=== PATIENT | female | born 1955 | race Caucasian/White ===

== ENCOUNTER → 2016-07-05 11:26 | Day surgery (SDC) | payer BC, OTHER ==
--- NOTE | 2016-06-30 03:38 | HP ---
PREOPERATIVE HISTORY AND PHYSICAL: DATE OF OFFICE VISIT/ENCOUNTER: 06/29/16 DATE OF SURGERY/ADMISSION: 07/05/16 [facility] ATTENDING SURGEON: Angeles Duran MD PROCEDURE: Right middle finger trigger finger release, right wrist ganglion cyst excision. CHIEF COMPLAINT: Right middle finger triggering; cyst, right wrist. HISTORY OF PRESENT ILLNESS: This is a 60-year-old female who has had triggering in her right middle finger for several years now. She had a cortisone injection in 2014 that was minimally helpful. She is also complaining of a cyst in the area of the radial styloid on the right wrist. It is not particularly bothersome and has not gotten any bigger, but she would like to have it removed. She is also interested in pursuing surgical intervention for the trigger finger of the right middle finger at this time. PAST MEDICAL HISTORY: 1. Hypertension. 2. Hypothyroidism. 3. Anxiety. PAST SURGICAL HISTORY: 1. Tonsillectomy. 2. D and C. 3. Breast surgery. 4. Partial hysterectomy. 5. Right ring finger cyst excision. CURRENT MEDICATIONS: 1. Enalapril maleate/hydrochlorothiazide 1 tab daily. 2. Levothyroxine sodium 100 mcg daily. 3. Lexapro 20 mg daily. 4. Melatonin 1 mg daily p.r.n. 5. Nexium 20 mg daily. 6. Trazodone HCl 50 mg one half to one tab daily. 7. Xanax 1 mg one half to one tab b.i.d. p.r.n. ALLERGIES: 1. NICKEL. 2. TETRACYCLINE. 3. FLUORIDE. 4. AMOXICILLIN. 5. CECLOR. 6. ERYTHROMYCIN. 7. ZOLOFT. FAMILY MEDICAL HISTORY: Esophageal cancer and cardiac disease. 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 She denies tobacco use and recreational drug use. She does admit to alcohol use on regular occasion. REVIEW OF SYSTEMS: General: Negative for fevers, chills, or night sweats. No known anesthesia problems. HEENT: Negative for headache, lightheadedness, or syncopal episodes. Cardiothoracic: Positive for hypertension. Negative for chest pain, palpitations, or edema. Pulmonary: Negative for shortness of breath with exertion, chronic cough, or COPD. GI: Negative for nausea, vomiting, diarrhea, constipation, or GERD. : Negative for nocturia, urinary frequency, urgency, history of UTIs, or kidney problems. Musculoskeletal: Positive for current complaint. Otherwise negative. Neurological: Positive for anxiety. Negative for paresthesias, numbness, history of seizure, stroke, or epilepsy. Endocrine: Positive for hypothyroidism. Negative for diabetes. Hematologic: Negative for easy bruising, anemia, excessive bleeding, or history of DVT. Infectious Disease: Negative for history of MRSA, hepatitis C, or HIV. PHYSICAL EXAMINATION GENERAL: Well-developed, well-nourished 60-year-old female, in no acute distress. VITAL SIGNS: Height 5 feet 5-1/4 inches, weight 155 pounds, pulse rate 65, blood pressure 139/89. HEENT: Normocephalic, atraumatic. Pupils are equal, round, and reactive to light and accommodation. Extraocular movements are intact. NECK: Supple. No palpable lymph nodes. Throat is clear. PULMONARY: Lungs are clear to auscultation bilaterally. No wheezes, rales, or rhonchi. CARDIOTHORACIC: Regular rate and rhythm. S1, S2. No murmurs, rubs, or gallops. No edema. ABDOMEN: Positive bowel sounds, soft, nontender. MUSCULOSKELETAL: On exam of the right hand, she has tenderness to palpation of the A1 oh of the middle finger. There is clicking and locking as she moves her finger through range of motion. There is no swelling. Neurovascular function is intact. She also has a small ganglion cyst in the first compartment tendon sheath at the right wrist. NEUROLOGICAL: Alert and oriented x3. Cranial nerves II through XII are intact. Sensation is intact to light touch. IMPRESSION: Right middle finger trigger finger and right wrist ganglion. PLAN: The patient is scheduled to undergo a right middle finger trigger finger release and a right wrist ganglion cyst excision with Dr. Duran on 07/05/16. She will return to the office 10 to 14 days postop for followup and suture removal. A prescription for Ultracet was e-scribed to the patient's pharmacy for postoperative pain management. DENNY STEPHENS [id number]/[facility] #: [id number] FAIZAN
[~2016-07-05 11:26] MED LIST: Acetaminophen TAB* 325 MG PO PRN; Buffered Lidocaine 1% SYRIN* 3 ML/SYR SYRINGE INTRADERM ONE; Dexamethasone IV* 4 MG/ML 1 ML (4 MG) ONE; DiMENhydriNATE IV* 50 MG/ML VIAL IV PUSH PRN; Famotidine IV* 10 MG/ML 2 ML (20 mg) ONE; HYDROmorphone* 1 MG/ML 1 ML SYR IV PRN; Ketorolac INJ* 30 MG/ML 1 ML VIAL ONE; Lidocaine 1% INJ* 10 MG/ML 30 ML SDV ONE; Lidocaine 2% PF* 5 ML VIAL ONE; Midazolam* 1 MG/ML 2 ML VIAL (2 MG) ONE; Ondansetron INJ* 2 MG/ML VIAL IV PRN; PROCHLORPERAZINE INJ 5 MG/ML 2 ML VIAL IV PRN; Propofol* 10 MG/ML 20 ML BTL IV PUSH ONE; fentaNYL* 50 MCG/ML 2 ML VIAL (100 MCG VIAL) ONE; oxyCODONE TAB* 5 MG TAB PO PRN
[2016-07-05 13:59] VITALS: BP 124/76
--- NOTE | 2016-07-05 23:41 | OP ---
DATE OF OPERATION: 07/05/[address] [facility] DATE OF : 55 SURGEON: Angeles Duran MD COMFORT FILLER: DENNY Fall ANESTHESIOLOGIST: Dr. Hernandez ANESTHESIA: Local MAC. PRE-OP DIAGNOSES: Right long finger trigger finger and right wrist mass. POST-OP DIAGNOSES: Right long finger trigger finger and right wrist mass. OPERATIVE PROCEDURE: Removal of right wrist mass and release right long finger trigger. INDICATIONS: Pau is a 60-year-old female with a painful mass on the radial aspect of her right wrist and triggering of her right long finger. She presents for trigger finger release and mass excision. ESTIMATED BLOOD LOSS: Zero. TOURNIQUET TIME: About 15 minutes. DESCRIPTION OF PROCEDURE: The patient was brought to the operating room and was given a sedation anesthetic and a local infiltration of 10 cc 1% plain lidocaine split between the two incision sites. The hand and forearm were exsanguinated and the tourniquet elevated to 250 mmHg. A transverse incision was made and centered over the A1 oh of the right middle finger, dissected bluntly through the subcutaneous tissue. The digital neurovascular bundles were retracted. The A1 oh was incised longitudinally, completely releasing the tendons, which were in good condition. The wound was irrigated and the skin edges reapproximated with 4-0 nylon suture. Next, a longitudinal incision was made over the wrist mass, we dissected bluntly through the subcutaneous tissue. The mass was actually a bony mass on the dorsal aspect of the groove for the first dorsal compartment, it was removed with the small portion of the wrist capsule and then a rongeur was used to completely remove the bony mass, which was sent for pathology. The first dorsal compartment was completely released. The wound was irrigated and skin edges reapproximated with 4-0 nylon suture. The wound was dressed with Xeroform, 4x4, Webril, and Julio César wrap. The patient tolerated the procedure well and was brought to the recovery room in good condition. [id number]/[facility] #: [id number] MTDD
== END | disposition home or self-care (01) ==
LOC: OREAST 11:26
PROVIDERS: ATTEND Orthopaedic Surgery
DX: M65.331 Trigger finger, right middle finger (principal); M67.431 Ganglion, right wrist; I10 Essential (primary) hypertension; E03.9 Hypothyroidism, unspecified; F41.9 Anxiety disorder, unspecified; Z88.1 Allergy status to other antibiotic agents
CPT/HCPCS: 88304; 88311; J1100; J1885; J2001; J2250; J2704; J3010

== ENCOUNTER 2017-03-04 08:55 | Emergency (ER) | payer BC ==
--- NOTE | 2017-03-04 09:07 | UC ---
Ear Complaint HPI - HPI Summary HPI Summary: 61 year old female presents with right ear pain. - History of Current Complaint Stated Complaint: RIGHT SIDE EAR ACHE Time Seen by Provider: 03/04/17 09:07 Hx Obtained From: Patient Onset/Duration: Sudden Onset Severity Initially: Moderate Severity Currently: Moderate - Allergies/Home Medications Allergies/Adverse Reactions: Allergies Allergy/AdvReac Type Severity Reaction Status Date / Time Amoxicillin Allergy Hives Verified 03/04/17 09:10 Cefaclor [From Ceclor] Allergy Itching Verified 03/04/17 09:10 Erythromycin Allergy Hives Verified 03/04/17 09:10 Sertraline [From Zoloft] Allergy Hives Verified 03/04/17 09:10 Tetracycline Allergy Hives Verified 03/04/17 09:10 neville Allergy eyes edema Uncoded 03/04/17 09:10 Home Medications: Home Medications ALPRAZolam TAB* [Xanax TAB*] 1 mg PO BID PRN 03/04/17 [History Confirmed ] Acetaminophen TAB* [Tylenol TAB*] 650 mg PO Q4H PRN 03/04/17 [History Confirmed 03/04/17] Escitalopram (NF) [Lexapro 20 mg (NF)] 20 mg PO DAILY 03/04/17 [History Confirmed 03/04/17] Ibuprofen TAB* [Advil TAB*] 400 mg PO Q6H PRN 03/04/17 [History Confirmed ] Levothyroxine TAB* [Synthroid TAB*] 100 mcg PO DAILY 03/04/17 [History Confirmed 03/04/17] PMH/Surg Hx/FS Hx/Imm Hx Previously Healthy: Yes - Surgical History Surgical History: Yes Surgery Procedure, Year, and Place: [place] [facility] [place] [facility] [place], tubal ligation, 15 yrs ago, [facility] [place] [facility] [place] - Family History Known Family History: Positive: None - Social History Alcohol Use: Daily Alcohol Amount: 2 per day Substance Use Type: None Smoking Status (MU): Never Smoked Tobacco Review of Systems Constitutional: Negative Skin: Negative Eyes: Negative ENT: Ear Ache - right ear pain Respiratory: Negative Cardiovascular: Negative Gastrointestinal: Negative Genitourinary: Negative Motor: Negative Neurovascular: Negative Musculoskeletal: Negative Neurological: Negative Psychological: Negative All Other Systems Reviewed And Are Negative: Yes Physical Exam Triage Information Reviewed: Yes Vital Signs Reviewed: Yes Eye Exam: Normal ENT: Positive: Other - right ear external canal erythema Dental Exam: Normal Neck exam: Normal Neck: Positive: 1 Respiratory Exam: Normal Cardiovascular Exam: Normal Abdominal Exam: Normal Musculoskeletal Exam: Normal Neurological Exam: Normal Psychological Exam: Normal Skin Exam: Normal Ear Complaint Course/Dx - Differential Dx/Diagnosis Provider Diagnoses: right ear otitis externa Discharge - Discharge Plan Condition: Stable Disposition: HOME Prescriptions: Fluticasone NASAL SPRAY 50MCG* [Flonase NASAL SPRAY 50MCG*] 2 spray BOTH NARES DAILY #1 btl Neomyc/Polym/HC 1% OTIC SUSP* [Cortisporin Otic Susp 1%*] 4 drop RIGHT EAR QID # 1 btl Patient Education Materials: Earache (ED) Referrals: Nichelle Mckenzie MD [Primary Care Provider] -
[2017-03-04 09:15] VITALS: BP 147/81
== END 2017-03-04 09:32 | disposition home or self-care (01) ==
LOC: UCCORT 08:55
DX: H60.91 Unspecified otitis externa, right ear (principal)
CPT/HCPCS: 99212; G0463

== ENCOUNTER 2017-04-09 13:08 | Emergency (ER) | payer BC, OTHER ==
[2017-04-09 15:25] VITALS: BP 147/82
--- NOTE | 2017-04-09 15:39 | UC ---
Throat Pain/Nasal Bhavesh HPI - HPI Summary HPI Summary: 4 days of sinus pain and pressure cough unable to sleep at night body aches and chills - History of Current Complaint Chief Complaint: UCGeneralIllness Stated Complaint: SORE THROAT,CONGESTION,EAR(S) Time Seen by Provider: 04/09/17 15:37 Hx Obtained From: Patient ?: No Onset/Duration: Sudden Onset, Lasting Days - 4, Still Present Severity: Moderate Cough: None Associated Signs & Symptoms: Positive: Sinus Discomfort, Fever - Allergies/Home Medications Allergies/Adverse Reactions: Allergies Allergy/AdvReac Type Severity Reaction Status Date / Time Amoxicillin Allergy Hives Verified 04/09/17 15:25 Cefaclor [From Ceclor] Allergy Itching Verified 04/09/17 15:25 Erythromycin Allergy Hives Verified 04/09/17 15:25 Sertraline [From Zoloft] Allergy Hives Verified 04/09/17 15:25 Tetracycline Allergy Hives Verified 04/09/17 15:25 neville Allergy eyes edema Uncoded 04/09/17 15:25 PMH/Surg Hx/FS Hx/Imm Hx Previously Healthy: Yes Endocrine History: Hypothyroidism Cardiovascular History: Hypertension Psychological History: Depression - Surgical History Surgical History: Yes Surgery Procedure, Year, and Place: [place] [facility] [place] [facility] [place], tubal ligation, 15 yrs ago, [facility] [place] [facility] [place] - Family History Known Family History: Positive: None - Social History Occupation: Employed Full-time Lives: With Family Alcohol Use: Daily Alcohol Amount: 2 per day Substance Use Type: None Smoking Status (MU): Never Smoked Tobacco - Immunization History Most Recent Influenza Vaccination: 01/2017 Review of Systems Constitutional: Chills, Fatigue Skin: Negative Eyes: Negative ENT: Sore Throat, Nasal Discharge, Sinus Congestion Respiratory: Cough Cardiovascular: Negative Gastrointestinal: Negative Genitourinary: Negative Motor: Negative Neurovascular: Negative Musculoskeletal: Arthralgia, Myalgia Neurological: Headache Psychological: Negative Is Patient Immunocompromised?: Yes All Other Systems Reviewed And Are Negative: Yes Physical Exam Triage Information Reviewed: Yes Appearance: No Pain Distress, Well-Nourished, Ill-Appearing Vital Signs: Initial Vital Signs Temp 97.4 F 04/09/17 15:20 Pulse 63 04/09/17 15:20 Resp 14 04/09/17 15:20 BP 147/82 04/09/17 15:20 Pulse Ox 100 04/09/17 15:20 Vital Signs Reviewed: Yes Eye Exam: Normal Eyes: Positive: Conjunctiva Clear ENT Exam: Normal ENT: Positive: Normal ENT inspection, Hearing grossly normal, Pharynx normal, Nasal congestion, TMs normal, Sinus tenderness, Uvula midline. Negative: Tonsillar swelling, Tonsillar exudate, Trismus, Muffled voice, Hoarse voice Dental Exam: Normal Neck exam: Normal Neck: Positive: Supple, Nontender, No Lymphadenopathy Respiratory Exam: Normal Respiratory: Positive: Chest non-tender, Lungs clear, Normal breath sounds, No respiratory distress, No accessory muscle use Cardiovascular Exam: Normal Cardiovascular: Positive: RRR, No Murmur, Pulses Normal, Brisk Capillary Refill Musculoskeletal Exam: Normal Musculoskeletal: Positive: Strength Intact, ROM Intact, No Edema Neurological Exam: Normal Neurological: Positive: Alert, Muscle Tone Normal Psychological Exam: Normal Skin Exam: Normal Diagnostics - Laboratory Diagnostic Studies Completed/Ordered: Influenza A/B (-) Throat Pain/Nasal Course/Dx - Course Assessment/Plan: zithromax, robitussin and codiene, increase fluids follow with pcp prn - Differential Dx/Diagnosis Provider Diagnoses: Bronchitis Discharge - Discharge Plan Condition: Stable Disposition: HOME Prescriptions: Azithromycin TAB* [Zithromax TAB (Z-SINCERE) 250 mg #6 tabs] 2 tab PO .TODAY, THEN 1 DAILY #1 sincere Guaifenesin-Codeine [Guaiatussin AC] 5 - 10 syp PO Q6HR PRN #60 ml MDD 40 PRN Reason: Cough Patient Education Materials: Acute Bronchitis (ED), Hypertension (ED) Referrals: Nichelle Mckenzie MD [Primary Care Provider] - 2 Weeks
== END 2017-04-09 16:19 | disposition home or self-care (01) ==
LOC: UCCORT 13:08
DX: J40 Bronchitis, not specified as acute or chronic (principal); Z88.1 Allergy status to other antibiotic agents; Z88.8 Allergy status to other drugs, medicaments and biological substances; I10 Essential (primary) hypertension
CPT/HCPCS: 87502; 87651; 99212; G0463

== ENCOUNTER 2017-06-10 08:45 | Emergency (ER) | payer BC ==
[2017-06-10 09:01] VITALS: BP 147/81
--- NOTE | 2017-06-10 09:14 | UC ---
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 She states having a URI since last weekend. Denies fever. States able to blow her nose but still feels very congested." -she has had many sinus infections and sx are consistent with previous. She has several med allergies and states that zpack always works well for her and she has never had complications with it (even while on lexapro). She prefers this medication. + Mild cough, no wheezing. no fever/chills/n/v. Started as chest cold. took iburpofen for pain w/ minimal relief - History of Current Complaint Chief Complaint: UCRespiratory Stated Complaint: SINUS PRESSURE Time Seen by Provider: 06/10/17 08:53 Pain Intensity: 6 - Allergies/Home Medications Allergies/Adverse Reactions: Allergies Allergy/AdvReac Type Severity Reaction Status Date / Time MS Amoxicillin [Amoxicillin] Allergy Hives Verified 06/10/17 09:02 MS Cefaclor [From Ceclor] Allergy Itching Verified 06/10/17 09:02 MS Erythromycin Allergy Hives Verified 06/10/17 09:02 [Erythromycin] MS Sertraline [From Zoloft] Allergy Hives Verified 06/10/17 09:02 MS Tetracycline Allergy Hives Verified 06/10/17 09:02 [Tetracycline] neville Allergy eyes edema Uncoded 04/09/17 15:25 Home Medications: Home Medications Guaifen/Phenyleph/Acetaminophn [Mucinex Sinus-Max Severe Liq] 180 ml PO ONCE 06/25 [History Confirmed 06/10/17] Lisinopril 20 mg PO ONCE 06/10/17 [History Confirmed 06/10/17] PMH/Surg Hx/FS Hx/Imm Hx Endocrine History: Hypothyroidism Cardiovascular History: Hypertension Psychological History: Anxiety, Depression - Surgical History Surgical History: Yes Surgery Procedure, Year, and Place[place] [facility] [place] [facility] [place], [place] 15 yrs ago[place] [facility] [place] [facility] [place] Family History Known Family History: Positive: Hypertension - Social History Alcohol Use: Daily Alcohol Amount: 2 per day Substance Use Type: None Smoking Status (MU): Never Smoked Tobacco - Immunization History Most Recent Influenza Vaccination: 01/2017 Review of Systems Constitutional: Fatigue Skin: Negative Eyes: Negative ENT: Sinus Congestion, Sinus Pain/Tenderness Respiratory: Cough Cardiovascular: Negative Gastrointestinal: Negative Genitourinary: Negative Motor: Negative Neurovascular: Negative Musculoskeletal: Negative Neurological: Negative Psychological: Negative Is Patient Immunocompromised?: No All Other Systems Reviewed And Are Negative: Yes Physical Exam Triage Information Reviewed: Yes Appearance: Well-Nourished, Pain Distress - mild Vital Signs: Initial Vital Signs Temp 99.4 F 06/10/17 08:56 Pulse 78 06/10/17 08:56 Resp 16 06/10/17 08:56 BP 147/81 06/10/17 08:56 Pulse Ox 99 06/10/17 08:56 Vital Signs Reviewed: Yes Eye Exam: Normal ENT: Positive: Pharynx normal, Nasal congestion, TMs normal, Sinus tenderness - + maxillary B/L > frontal. Negative: Tonsillar swelling, Hoarse voice Dental Exam: Normal Neck exam: Normal Neck: Positive: Supple, Nontender, No Lymphadenopathy Respiratory Exam: Normal Respiratory: Positive: Lungs clear, Normal breath sounds, No respiratory distress, No accessory muscle use Cardiovascular Exam: Normal Cardiovascular: Positive: RRR, No Murmur, Pulses Normal Abdomen Description: Positive: Nontender, Soft Musculoskeletal Exam: Normal Neurological Exam: Normal Psychological Exam: Normal Skin Exam: Normal UC Diagnostic Evaluation - Laboratory O2 Sat by Pulse Oximetry: 99 Respiratory Course/Dx - Course Course Of Treatment: disc potential for heart arrhthmia w/ combination of zpack and lexapro and she prefers this medication as it works well for her and she never had an issue in the past w/ this combination. -adv limit NSAIDs d/t HTN - Differential Dx/Diagnosis Differential Diagnosis/HQI/PQRI: Bronchitis, Sinusitis Provider Diagnoses: sinusitis Discharge - Discharge Plan Condition: Stable Disposition: HOME Prescriptions: Azithromyxin SINCERE (NF) [Z-Sincere (Zithromax) 250 mg tabs #6] 250 mg PO .ZPAK INSTRUCTIONS #6 tab Patient Education Materials: Sinusitis (ED) Referrals: Nichelle Mckenzie MD [Primary Care Provider] - 1 Week Additional Instructions: -Make sure to take a probiotic daily while on antibiotics to help prevent a potential complication of antibiotic use called c diff. Some well known brands that can be found OTC are [employer], [employer] and [employer] Make sure to complete the entire prescription unless advised otherwise by your health care provider. -We discussed the potential interaction of the escitalopram and zpack on heart rhythm. You have reported to me that you have taken zpack in past while on this medication without any problems and prefer to use zpack at this time.
== END 2017-06-10 09:29 | disposition home or self-care (01) ==
LOC: UCCORT 08:45
DX: J32.9 Chronic sinusitis, unspecified (principal); Z88.1 Allergy status to other antibiotic agents; Z88.0 Allergy status to penicillin; Z91.048 Other nonmedicinal substance allergy status
CPT/HCPCS: 99212; G0463

== ENCOUNTER 2018-03-03 08:05 | Emergency (ER) | payer BC ==
[2018-03-03 08:26] VITALS: BP 145/77
--- NOTE | 2018-03-03 09:01 | UC ---
Throat Pain/Nasal Bhavesh HPI - HPI Summary HPI Summary: 62 y/o with no PMH, no recent ABX, + recent cold x several week, dry cough. past 2-3 days of increased sinus pain, pressure, decreased sleep due to increased coughing at night, no fever, chills, L sided face pain/ ear pain no SOB, no chest pain, sore ribs. - History of Current Complaint Chief Complaint: UCGeneralIllness Stated Complaint: ST/SINUS Time Seen by Provider: 03/03/18 08:41 Hx Obtained From: Patient Onset/Duration: Sudden Onset, Lasting Weeks Severity: Moderate Pain Intensity: 6 Pain Scale Used: 0-10 Numeric - Allergies/Home Medications Allergies/Adverse Reactions: Allergies Allergy/AdvReac Type Severity Reaction Status Date / Time MS Amoxicillin [Amoxicillin] Allergy Hives Verified 03/03/18 08:28 MS Cefaclor [From Ceclor] Allergy Itching Verified 03/03/18 08:28 MS Erythromycin Allergy Hives Verified 03/03/18 08:28 [Erythromycin] MS Sertraline [From Zoloft] Allergy Hives Verified 03/03/18 08:28 MS Tetracycline Allergy Hives Verified 03/03/18 08:28 [Tetracycline] neville Allergy eyes edema Uncoded 03/03/18 08:28 PMH/Surg Hx/FS Hx/Imm Hx Previously Healthy: No - Surgical History Surgical History: Yes Surgery Procedure, Year, and Place: [place] [facility] [place] [facility] [place], [place]al ligation, [place]rs ago[place] [facility] [place] [facility] [place] Family History Known Family History: Positive: None, Hypertension - Social History Alcohol Use: Daily Alcohol Amount: 2 per day Substance Use Type: None Smoking Status (MU): Never Smoked Tobacco - Immunization History Most Recent Influenza Vaccination: 01/2017 Review of Systems All Other Systems Reviewed And Are Negative: Yes Constitutional: Positive: Fatigue ENT: Positive: Sore Throat, Sinus Congestion, Sinus Pain/Tenderness Respiratory: Positive: Cough, Other - rib pain Is Patient Immunocompromised?: No Physical Exam Triage Information Reviewed: Yes Appearance: No Pain Distress, Well-Nourished, Ill-Appearing - mild Vital Signs: Initial Vital Signs Temp 98.5 F 03/03/18 08:23 Pulse 71 03/03/18 08:23 Resp 16 03/03/18 08:23 BP 145/77 03/03/18 08:23 Pulse Ox 100 03/03/18 08:23 Eyes: Positive: Conjunctiva Clear ENT: Positive: Pharynx normal, Nasal congestion, TM red - minimal b/l, mild fluid posterior to TM., Sinus tenderness - frontal, max b/l, Uvula midline. Negative: Nasal drainage Dental Exam: Normal Neck: Positive: Supple, Nontender, Enlarged Nodes @ - periot, submand b/l Respiratory: Positive: Chest non-tender, Lungs clear, Normal breath sounds, No respiratory distress, No accessory muscle use. Negative: Respiratory distress, Crackles, Rhonchi, Stridor, Wheezing, Expiration Cardiovascular: Positive: RRR, No Murmur Throat Pain/Nasal Course/Dx - Course Course Of Treatment: Z=pack due to h/o mulitple allergies to abx, increase fluid , rest, follow up with PCP if no improvement by monday. codiene/ guaf to help with cough at night. - Differential Dx/Diagnosis Differential Diagnosis/HQI/PQRI: Influenza, Laryngitis, Mononucleosis, Pharyngitis Provider Diagnoses: acute bronchitis, acute sinusitis Discharge - Sign-Out/Discharge Documenting (check all that apply): Patient Departure All imaging exams completed and their final reports reviewed: No Studies - Discharge Plan Condition: Good Disposition: HOME Prescriptions: Codeine Phosphate/Guaifenesin [Guaifen-Codeine 100-10 mg/5 ml] 5 ml PO BEDTIME PRN #20 ml MDD 1 PRN Reason: Cough Patient Education Materials: Sinusitis (ED) Referrals: Nichelle Mckenzie MD [Primary Care Provider] - Additional Instructions: - Increase fluids - Z-pack as directed - GO to ER with fever > 101, increased pain - FOllow up with primary physician within 2-3 days if no improvement - Codeine/ Cough medication for night time cough symptoms, do not take with xanax - Billing Disposition and Condition Condition: GOOD Disposition: Home
== END 2018-03-03 09:11 | disposition home or self-care (01) ==
LOC: UCCORT 08:05
DX: J20.9 Acute bronchitis, unspecified (principal); J01.90 Acute sinusitis, unspecified; Z88.0 Allergy status to penicillin; Z88.1 Allergy status to other antibiotic agents; Z88.8 Allergy status to other drugs, medicaments and biological substances
CPT/HCPCS: 99212; G0463

== ENCOUNTER 2019-01-09 08:49 | Emergency (ER) | payer BC, OTHER ==
--- OUTSIDE RECORDS SUMMARY | 2019-01-09 09:03 | XMS REPORT | Continuity of Care Document ---
:1955 External Reference #:[id number] Author Name Emanuel Lucero, OD Address [address] [place] [address] Care Team Providers Name Role Phone Joseline Mckenzie MD Care Team Information T[employer]per [phone] Problems Active Problems Provider Date Allergic contact dermatitis of eyelid Andreina Nunes O.D. Onset: 11/04/2014 Tear film insufficiency Andreina Nunes O.D. Onset: 11/04/2014 Presbyopia Andreina Nunes O.D. Onset: 11/04/2014 Regular astigmatism Andreina Nunes O.D. Onset: 11/04/2014 Hypermetropia Andreina Nunes O.D. Onset: 11/04/2014 Contusion of eyelid Andreina Nunes O.D. Onset: 11/11/2014 Social History Type Date Description Comments Sex Unknown ETOH Use Currently consumes alcohol Tobacco Use Start: Unknown Patient has never smoked Smoking Status Reviewed: 12/04/18 Patient has never smoked Allergies, Adverse Reactions, Alerts Active Allergies Reaction Severity Comments Date Erythromycin 11/04/2014 Tetracycline 11/04/2014 Amoxicillin 11/04/2014 Ceclor 11/04/2014 Zoloft 11/04/2014 Nickel 11/04/2014 Medications Active Medications SIG Qnty Indications Ordering Provider Date Vasotec Unknown Tablets Levothyroxine Sodium Unknown Tablets Lexapro Unknown Tablets Alprazolam Jonah CLEMENT, 1mg Tablets Joseline Enalapril Jonah CLEMENT, Maleate/Hydrochlorothia Joseline zide 10-25mg Tablets Escitalopram Oxalate Take One Tablet Unknown 20mg By Mouth Every Tablets Day Levothyroxine Sodium Jonah CLEMENT, 100mcg Joseline Tablets Trazodone HCL Take 1 2 1 Unknown 50mg Tablets Tablet By Mouth AT Bedtime Tramadol Unknown Hydrochloride/Acetamino phen 37.5-325mg Tablets Lisinopril-Hydrochlorot Take One Tablet Unknown hiazide By Mouth Every 20-12.5mg Tablets Day Immunizations Description No Information Available Vital Signs Date Vital Result Comment 12/04/2018 3:19pm Intraocular Pressure Right Eye 15 mmHg Intraocular Pressure Left Eye 15 mmHg 12/22/2016 1:43pm Intraocular Pressure Right Eye 13 mmHg Intraocular Pressure Left Eye 13 mmHg Results Description No Information Available Procedures Date Code Description Status 12/04/2018 86291 Ophthalmoscopy Subsequent Completed 12/04/2018 76003 Eye Exam Est Comprehensive Completed Medical Devices Description No Information Available Encounters Description No Information Available Assessments Date Code Description Provider 12/04/2018 H43.813 Vitreous degeneration, bilateral Emanuel Lucero, OD 12/04/2018 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
[2019-01-09 09:13] VITALS: BP 133/80
--- NOTE | 2019-01-09 10:31 | UC ---
Eye Complaint HPI - HPI Summary HPI Summary: 63-year-old female presents with complaints of bilateral eye redness, itchiness , purulent drainage, and crusting shut of the eyes in the morning. States symptoms began 2 days ago in the right eye which are progressively worsened and this morning she noted symptoms beginning in the left eye as well. Denies eye pain, visual disturbances, photophobia, fever, chills, or URI symptoms. - History of Current Complaint Chief Complaint: UCEye Stated Complaint: EYE COMP Time Seen by Provider: 01/09/19 10:03 Hx Obtained From: Patient Pain Intensity: 7 - Allergies/Home Medications Allergies/Adverse Reactions: Allergies Allergy/AdvReac Type Severity Reaction Status Date / Time amoxicillin Allergy Hives Verified 01/09/19 09:13 cefaclor Allergy Itching Verified 01/09/19 09:13 erythromycin base Allergy Hives Verified 01/09/19 09:13 nickel Allergy Eyes Verified 01/09/19 09:13 Itchy/Swollen/Red/Watery Tetracyclines Allergy Hives Verified 01/09/19 09:13 PMH/Surg Hx/FS Hx/Imm Hx Previously Healthy: Yes Endocrine History: Thyroid Disease Cardiovascular History: Hypertension Psychological History: Anxiety, Depression - Surgical History Surgical History: Yes Surgery Procedure, Year, and Place: [place] [facility] [place] [facility] [place] [facility] [place], [place] [facility] [place] Family History Known Family History: Positive: Hypertension - Social History Occupation: Retired Lives: With Family Alcohol Use: Daily Alcohol Amount: 2 per day Substance Use Type: None Smoking Status (MU): Never Smoked Tobacco - Immunization History Most Recent Influenza Vaccination: 01/2017 Review of Systems All Other Systems Reviewed And Are Negative: Yes Constitutional: Negative: Fever, Chills Eyes: Positive: Drainage, Eye Redness. Negative: Blurred Vision, Diplopia, Photophobia ENT: Negative: Sore Throat, Ear Ache, Nasal Discharge, Sinus Congestion, Sinus Pain/Tenderness Respiratory: Negative: Cough Cardiovascular: Positive: Negative Gastrointestinal: Positive: Negative Genitourinary: Positive: Negative Musculoskeletal: Positive: Negative Neurological: Positive: Negative Is Patient Immunocompromised?: No Physical Exam - Summary Physical Exam Summary: GENERAL APPEARANCE: Well developed, well nourished, alert and cooperative, and appears to be in no acute distress. EYES: Bilateral conjuctival erythema with right worse than left. Scant amount of purulent drainage noted to right eye. PERRL, EOM intact. Vision is grossly intact. EARS: External auditory canals and tympanic membranes clear, hearing grossly intact. NOSE: No nasal discharge. THROAT: Pharynx normal. Tonsils surgically absent. Uvula midline. NECK: Neck supple, non-tender without lymphadenopathy. CARDIAC: Normal S1 and S2. No S3, S4 or murmurs. Rhythm is regular. There is no peripheral edema, cyanosis or pallor. Extremities are warm and well perfused. Capillary refill is less than 2 seconds. Peripheral pulses intact. LUNGS: Clear to auscultation without rales, rhonchi, wheezing or diminished breath sounds. ABDOMEN: Positive bowel sounds. Soft, nondistended, nontender. No guarding or rebound. No masses or hepatosplenomegally. MUSKULOSKELETAL: ROM intact to all extremities. No joint erythema or tenderness. Normal muscular development. Normal gait. SKIN: Skin normal color, texture and turgor with no lesions or eruptions. Triage Information Reviewed: Yes Vital Signs: Initial Vital Signs Temp 98.7 F 01/09/19 09:09 Pulse 74 01/09/19 09:09 Resp 18 01/09/19 09:09 BP 133/80 01/09/19 09:09 Pulse Ox 99 01/09/19 09:09 Vital Signs Reviewed: Yes Eye Complaint Course/Dx - Course Course Of Treatment: 63-year-old female presents with complaints of bilateral eye redness, itchiness , purulent drainage, and crusting shut of the eyes in the morning. States symptoms began 2 days ago in the right eye which are progressively worsened and this morning she noted symptoms beginning in the left eye as well. Denies eye pain, visual disturbances, photophobia, fever, chills, or URI symptoms. Afebrile. Vital signs stable. Patient had bilateral conjunctival erythema with the right being worse than the left and a scant amount of purulent drainage noted to the right eye. Remainder of exam was unremarkable. Will treat her for acute bilateral bacterial conjunctivitis with Polytrim ophthalmic drops 1 drop 4 times a day 7 days. She is to follow-up with her primary care provider in 3 days if symptoms are not improving. Anticipatory guidance warning symptoms reviewed with the patient. Verbalizes understanding and agrees with plan of care. - Differential Dx/Diagnosis Differential Diagnosis/HQI/PQRI: Conjunctivitis, Keratitis, Periorbital Cellulitis, Orbital Cellulitis Provider Diagnosis: Acute bacterial conjunctivitis of both eyes Discharge ED - Sign-Out/Discharge Documenting (check all that apply): Patient Departure All imaging exams completed and their final reports reviewed: No Studies - Discharge Plan Condition: Stable Disposition: HOME Prescriptions: Polymyx/Trimethoprim OPTH* [Polytrim OPHTH*] 1 drop BOTH EYES QID #1 btl Patient Education Materials: Conjunctivitis (ED) Referrals: Nichelle Mckenzie MD [Primary Care Provider] - Additional Instructions: Start Polytrim opthalmic drops. Instill 1 drop into both eyes 4 times a day for 7 days. To avoid reinfection or spreading infection: * Use washcloths and towels once then launder. * Do not share washcloths or towels with others. * Change your pillow case each morning until you have finished treatment. * You should throw out any eye makeup, especially mascara, and use a new one once you have finished treatment. Follow up here or with your primary care provider in 3 days if no improvement. Seek immediate medical attention in the emergency room if you develop fever greater than 100.5 F, have pain or swelling of the eye, visual disturbances, loss of vision, or any worsening of symptoms. - Billing Disposition and Condition Condition: STABLE Disposition: Home
== END 2019-01-09 10:43 | disposition home or self-care (01) ==
LOC: UCCORT 08:49
DX: H10.89 Other conjunctivitis (principal); I10 Essential (primary) hypertension; B96.89 Other specified bacterial agents as the cause of diseases classified elsewhere; Z88.0 Allergy status to penicillin; Z88.1 Allergy status to other antibiotic agents; Z91.09 Other allergy status, other than to drugs and biological substances
CPT/HCPCS: 99212; G0463